=== PATIENT | female | born 1940 | race African-American/Black ===

== ENCOUNTER 2022-03-08 23:51 | Emergency (ER) | payer OTHER ==
[~2022-03-08] VITALS: Ht 165.1 cm; Wt 77.1 kg
[2022-03-09] MEDS ORDERED: SYNTHROID75 MCG PO (00:15)
[2022-03-09] MEDS ORDERED: AVAPRO300 MG PO (00:16)
[2022-03-09] MEDS ORDERED: NEURONTIN PO (00:17)
[2022-03-09] MEDS ORDERED: ZOLOFT100 MG PO (00:17)
[2022-03-09] MEDS ORDERED: CLONAZEPAM0.5 MG PO (00:17)
[2022-03-09] MEDS ORDERED: PEPCID AC20 MG PO (00:17)
[2022-03-09] MEDS ORDERED: ECOTRIN81 MG PO (00:18)
== END 2022-03-09 10:06 | disposition designated cancer center or children's hospital (05) ==
LOC: ER 23:51
DX: I63.9 Cerebral infarction, unspecified (principal); I10 Essential (primary) hypertension; R51.9 Headache, unspecified